=== PATIENT | female | born 1955 | race American Indian/Alaskan Native ===

== ENCOUNTER 2017-11-06 10:21 | Day surgery (SDC) | payer BC ==
[~2017-11-06 10:21] MED LIST: NACL 0.9% 1000 ML 1,000 ML IV SCH; XYLOCAINE MPF 2% ONE
--- NOTE | 2017-11-06 11:51 | Anesthesia Day of Surgery ---
Anesthesia Day of Surgery - Day of Surgery Patient Examined: Yes Patient H&P Reviewed: Yes Patient is NPO: Yes
--- NOTE | 2017-11-06 11:51 | Anesthesia Consultation ---
Anesthesia Consult and Med Hx Date of service: 11/06/17 - Airway Anesthetic Teeth Evaluation: Good ROM Head & Neck: Adequate Mental/Hyoid Distance: Adequate Mallampati Class: Class III Intubation Access Assessment: Probably Good - Pre-Operative Health Status ASA Pre-Surgery Classification: ASA2 Proposed Anesthetic Plan: General - Pulmonary Hx Smoking: No - Cardiovascular System Hx Hypertension: Yes - Hematic Hx Anemia: Yes - Other Systems Hx Alcohol Use: No Hx Substance Use: No - Additional Comments Anesthesia Medical History Comments: NAC
[2017-11-06] MEDS ORDERED: DIPRIVAN 10 MG/ML IV ONE (12:36)
--- NOTE | 2017-11-06 13:09 | Discharge Summary ---
Short Stay Discharge Plan Activity: advance as tolerated Weight Bearing Status: Weight Bear as Tolerated Diet: regular Additional Instructions: Post Sedation D/C Instructions When you return home you may resume your regular diet unless otherwise directed. -Go directly home from the hospital and rest quietly. You may resume normal activities tomorrow. -Do NOT drive, return to work, operate any machinery or make any important personal or business decisions today. -Do NOT drink any alcohol or take nerve or sleeping drugs. They add to the effects of the medicine still present in your body. Follow up with Dr. Loza in 2 weeks to obtain pathology results and treatment plan. Follow up with: NAYE HUDSON MD [Primary Care Provider] - 7 Days
--- NOTE | 2017-11-06 13:09 | Operative Report ---
Operative Report Operative Report: Date: 11/06/2017 Date of procedure: 11/06/2017 Operative Report: :Esophagogastroduodenoscopy with multiple mucosal biopsies Attending physician: Doc Loza M.D. Investment Accounting Clerk: Doc Loza MD Indication: Patient is a 62-year-old female who presented with a history of dyspepsia with bloating, early satiety and abnormal weight loss. An upper endoscopy is done to assess patient so that treatment may be directed based on the findings. Consent: Informed consent was obtained after advising the patient and family regarding nature of this procedure, its indications, potential benefits as well as possible complications including but not limited to bleeding perforation and adverse reaction to medication, infection as well as other cardiopulmonary complications. An informed written and verbal consent was then obtained after due opportunity was provided for questions and answers. Monitoring: Patient was monitored continuously with pulse oximetry and electrocardiographic recordings as well as blood pressure recordings. Vital signs remained stable throughout this procedure with no untoward events. Preoperative assessment: Patient was assessed immediately prior to this procedure for capacity to tolerate monitored anesthesia care and moderate sedation as well as general anesthesia. Patient's ASA classification is 2, Mallampati class is 2, Hyomental distance is 3. Instrument: [employer] video endoscope Medications: Propofol given intravenously in divided doses. For details please refer to anesthesia records. Description of procedure: Patient was placed in the left lateral decubitus position after achieving sedation, the endoscope was introduced into the esophagus under direct vision. It was then advanced beyond the esophagus into the stomach and then beyond the stomach into the duodenum and to the second portion of the duodenum. It was subsequently withdrawn with careful inspection of all mucosal surfaces with the following findings. Findings: Patient has mild erosive esophagitis, involving the distal esophagus, with linear erosions and erythema. There was a small sliding hiatal hernia seen on entry into the stomach. There was mild antral erythema and erosions in the gastric antrum. . Biopsies of the antrum were obtained for histopathology. There appeared to be extrinsic compression of the stomach seen in the gastric cardia. There was however no intraluminal mass seen. The duodenum was normal to second portion. Impression: Mild erosive esophagitis. Small Hiatal hernia. Mucosal changes suggestive of gastritis. Extraluminal extrinsic compression of the gastric cardia. Plan: Follow pathology report, direct additional treatment based on the pathology report. Evaluate patient further with a colonoscopy given history of weight loss and also past history of colon polyps. Patient will require additional evaluation including CT scan of the abdomen and pelvis, given the endoscopic findings of extrinsic compression in the gastric cardia. Follow patient clinically otherwise.
[2017-11-06 13:23] VITALS: BP 177/85
== END 2017-11-06 10:22 | disposition home or self-care (01) ==
LOC: GIO 10:21
PROVIDERS: ATTEND Internal Medicine Gastroenterology
DX: K22.10 Ulcer of esophagus without bleeding (principal); K29.70 Gastritis, unspecified, without bleeding; K44.9 Diaphragmatic hernia without obstruction or gangrene; I10 Essential (primary) hypertension
CPT/HCPCS: 88305; 88342; J2704; J7030